=== PATIENT | male | born 1975 | race Caucasian/White ===

== ENCOUNTER 2017-02-07 11:12 | Emergency (ER) | payer BC, OTHER ==
[2017-02-07 11:28] VITALS: BP 119/79
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
== END 2017-02-07 12:31 | disposition home or self-care (01) ==
LOC: ER 11:12
PROC: 0JB10ZZ Excision of Face Subcutaneous Tissue and Fascia, Open Approach (ICD-10-PCS; principal; 2017-02-07)
DX: S01.511A Laceration without foreign body of lip, initial encounter (principal); Y04.0XXA Assault by unarmed brawl or fight, initial encounter